=== PATIENT | female | born 1935 | race Caucasian/White ===

== ENCOUNTER 2017-09-08 11:58 | Emergency (ER) | payer MEDICARE, MEDICAID ==
[2017-09-08 12:41] VITALS: BP 137/90; PULSE 86; RESP 16; TEMP 98.3; O2SAT 98
--- NOTE | 2017-09-08 13:54 | C.PDOC ---
History Of Present Illness 82 yr old female presents to the ER stating yesterday woke up with complete left eye vision loss which lasted approximately 15 minutes, with associated eye redness. Patient states vision improved spontaneously back to normal all day. However, patient states this morning she woke up with blurry vision to the same eye but no vision loss which has also resolved. Patient also reports of mild headache, generalized frontal scalp. Patient denies trauma, fever, no foreign body sensation in the left eye, no eye pain, nausea, vomiting, weakness or numbness. Time Seen by Provider: 09/08/17 13:19 Chief Complaint (Nursing): Weakness/Neurological Deficit History Per: Patient History/Exam Limitations: no limitations Onset/Duration Of Symptoms: Days (1) Past Medical History Reviewed: Historical Data, Nursing Documentation, Vital Signs Vital Signs: Last Vital Signs Temp 98.3 F 09/08/17 12:35 Pulse 86 09/08/17 12:35 Resp 16 09/08/17 12:35 BP 137/90 09/08/17 12:35 Pulse Ox 98 09/08/17 14:23 - Medical History PMH: HTN, Hypercholesterolemia Family History: States: No Known Family Hx - Social History Hx Alcohol Use: No Hx Substance Use: No - Immunization History Hx Influenza Vaccination: No Review Of Systems Except As Marked, All Systems Reviewed And Found Negative. Constitutional: Negative for: Fever Eyes: Positive for: Vision Change (complete vision lose, resovled now/ blurry vision, now resovled), Redness (left eye), Other (no FB). Negative for: Pain Gastrointestinal: Negative for: Nausea, Vomiting Neurological: Positive for: Headache (mild frontal headache). Negative for: Weakness, Numbness Physical Exam - Physical Exam Appears: Non-toxic, No Acute Distress Skin: Warm, Dry, No Rash Head: Atraumatic, Normacephalic Eye(s): bilateral: PERRL, EOMI, Other (sclera injected, no photophobia, normal periorbital) Ear(s): Bilateral: Normal Oral Mucosa: Moist Cardiovascular: Rhythm Regular, No Murmur Respiratory: Normal Breath Sounds, No Rales, No Rhonchi, No Stridor, No Wheezing Extremity: Normal ROM, No Swelling Neurological/Psych: Oriented x3, Normal Speech, Normal Cranial Nerves, Normal Motor, Normal Sensation Gait: Steady ED Course And Treatment O2 Sat by Pulse Oximetry: 98 (RA) Pulse Ox Interpretation: Normal Progress - Re-Evaluation Re-evaluation Note: 09/08/17 13:52 D/W DR HALL AWARE OF ER FINDINGS REQUESTS REFERRAL TO OFFICE NOW FOR EVAL. D/W PT AND FAMILY, AGREES W DC PLAN. - Continuity of Care Discussed pt. case with medical record consultant/specialty: Opthalmology Disposition Counseled Patient/Family Regarding: Diagnosis, Need For Followup - Disposition Referrals: Abhi Hall [Staff Provider] - Disposition: HOME/ ROUTINE Disposition Time: 13:56 Condition: GOOD Instructions: Blurred Vision (ED) Forms: [employer] (Welsh) - Clinical Impression Clinical Impression: Red eye, Blurry vision - Scribe Statement The provider has reviewed the documentation as recorded by the Scribe Meredith Franco Provider Attestation: All medical record entries made by the Scribe were at my direction and personally dictated by me. I have reviewed the chart and agree that the record accurately reflects my personal performance of the history, physical exam, medical decision making, and the department course for this patient. I have also personally directed, reviewed, and agree with the discharge instructions and disposition.
== END 2017-09-08 14:28 | disposition home or self-care (01) ==
LOC: C.ER 11:58
DX: H53.8 Other visual disturbances (principal); H57.8 Other specified disorders of eye and adnexa